=== PATIENT | female | born 1945 | race Caucasian/White ===

== ENCOUNTER → 2016-10-08 | Outpatient (CLI) | payer MEDICARE | END | disposition home or self-care (01) | LOC: CFH 08:20 | PROVIDERS: ATTEND Family Medicine | DX: Z12.31 Encounter for screening mammogram for malignant neoplasm of breast (principal); Z13.820 Encounter for screening for osteoporosis; M85.80 Other specified disorders of bone density and structure, unspecified site; Z80.3 Family history of malignant neoplasm of breast | CPT/HCPCS: 77080; G0202 ==

== ENCOUNTER 2016-10-28 17:46 | Inpatient (IN) | payer MEDICARE ==
[~2016-10-28] VITALS: Ht 152.4 cm; Wt 66.5 kg
[2016-10-28] MEDS ORDERED: SODIUM CHLORIDE 0.9% 1,000 ML IV ONE ×2 (18:19→22:06)
[2016-10-28] MEDS ORDERED: ONDANSETRON ODT 4 MG ONE (18:20)
[2016-10-28] MEDS ORDERED: ONDANSETRON ODT 4 MG PO ONE (18:30)
[2016-10-28] MEDS ORDERED: SODIUM CHLORIDE FLUSH 10ML SYR IVF ONE (18:30)
[2016-10-28 18:54] LABS: ASPARTATE AMINO TRANSFERASE 22 U/L (15-37); BLOOD UREA NITROGEN 13 mg/dL (7-18)
[2016-10-28] MEDS ORDERED: SIMV10TA3 PO (20:19)
[2016-10-28] MEDS ORDERED: IRBE75TA10 PO (20:19)
[2016-10-28] MEDS ORDERED: HYDR12.53 PO (20:19)
[2016-10-28] MEDS ORDERED: SULF1TAB24 PO (20:19)
[2016-10-28] MEDS ORDERED: ONDANSETRON 2MG/ML, 2ML ONE (22:12)
[2016-10-28] MEDS ORDERED: ONDANSETRON 2MG/ML, 2ML IVPush PRN (22:30)
[2016-10-28] MEDS ORDERED: PROMETHAZINE 25 MG/ML, 1ML IM PRN (22:30)
[2016-10-28 23:05] VITALS: BP 165/69
[2016-10-29 01:05] VITALS: BP 167/78
[2016-10-29] MEDS ORDERED: METOCLOPRAMIDE 5 MG/ML, 2ML IVPush PRN (02:30)
[2016-10-29] MEDS ORDERED: ACETAMINOPHEN 325 MG TABLET PO PRN (02:30)
[2016-10-29] MEDS ORDERED: CEFTRIAXONE PMX 1GM/50ML 50 ML IV SCH (02:30)
[2016-10-29] MEDS ORDERED: METRONIDAZOLE PMX 500MG/100ML 100 ML IV SCH (02:30)
[2016-10-29] MEDS ORDERED: ENALAPRILAT 1.25 MG/ML, 2ML IVPush PRN (02:30)
[2016-10-29] MEDS ORDERED: ONDANSETRON 2MG/ML, 2ML IVPush PRN (02:30)
[2016-10-29] MEDS ORDERED: PROMETHAZINE 25 MG/ML, 1ML IM PRN (02:30)
[2016-10-29] MEDS ORDERED: LABETALOL 5MG/ML, 20ML IVPush PRN (02:30)
[2016-10-29] MEDS ORDERED: DEXTROSE 4 GM TAB.CHEW PO PRN (03:00)
[2016-10-29] MEDS ORDERED: GLUCAGON 1 MG IM PRN (03:00)
[2016-10-29] MEDS ORDERED: DEXTROSE 50%, 50ML SYRINGE IVPush PRN (03:00)
[2016-10-29] MEDS: SODIUM CHLORIDE 0.9% 1,000 ML IV SCH ×2 (03:12→20:38)
[2016-10-29 03:19] LABS: BLOOD UREA NITROGEN 10 mg/dL (7-18)
[2016-10-29] MEDS: INSULIN ASPART 100 UNITS/ML, PEN SQ-INSULIN SCH ×4 (07:00→20:42)
[2016-10-29 07:18] VITALS: BP 153/65
[2016-10-29 07:19] LABS: POTASSIUM,URINE RANDOM 4 mmol/L
[2016-10-29] MEDS: SODIUM CHLORIDE FLUSH 10ML SYR IVF SCH ×2 (09:00→20:37)
[2016-10-29] MEDS: LACTOBACILLUS CHEW TABLET PO SCH ×3 (09:10→20:37)
[2016-10-29] MEDS: IRBESARTAN 150 MG TABLET PO SCH (09:10)
[2016-10-29] MEDS: ENOXAPARIN 40 MG/0.4 ML SQ SCH (09:11)
[2016-10-29 14:28] VITALS: BP 135/68
[2016-10-29 19:55] VITALS: BP 134/76
[2016-10-29] MEDS ORDERED: SIMVASTATIN 10 MG TABLET PO SCH (21:00)
[2016-10-30 01:54] VITALS: BP 133/83
[2016-10-30 04:39] LABS: BLOOD UREA NITROGEN 14 mg/dL (7-18)
[2016-10-30] MEDS: INSULIN ASPART 100 UNITS/ML, PEN SQ-INSULIN SCH ×2 (07:00→11:00)
[2016-10-30 08:30] VITALS: BP 155/75
[2016-10-30] MEDS: IRBESARTAN 150 MG TABLET PO SCH (09:00)
[2016-10-30] MEDS: ENOXAPARIN 40 MG/0.4 ML SQ SCH (09:00)
[2016-10-30] MEDS: SODIUM CHLORIDE FLUSH 10ML SYR IVF SCH (09:00)
[2016-10-30] MEDS: LACTOBACILLUS CHEW TABLET PO SCH (09:00)
[2016-10-30] MEDS: SODIUM CHLORIDE 0.9% 1,000 ML IV SCH (10:30)
== END 2016-10-30 13:40 | disposition home or self-care (01) | DRG 394 ==
LOC: ED 21:37 → EDIP 22:59 → 3NW 23:00 → DCLOUNGE 10-30 13:21
PROVIDERS: ADMIT Internal Medicine
DX: K52.1 Toxic gastroenteritis and colitis (principal); E87.1 Hypo-osmolality and hyponatremia; N39.0 Urinary tract infection, site not specified; E11.9 Type 2 diabetes mellitus without complications; E78.5 Hyperlipidemia, unspecified; E86.0 Dehydration; I10 Essential (primary) hypertension; I16.0 Hypertensive urgency; Z98.51 Tubal ligation status; Z79.899 Other long term (current) drug therapy; Z88.5 Allergy status to narcotic agent; Z88.8 Allergy status to other drugs, medicaments and biological substances; Z83.3 Family history of diabetes mellitus; A08.4 Viral intestinal infection, unspecified; T37.0X5A Adverse effect of sulfonamides, initial encounter
CPT/HCPCS: 36415; 71010; 80048; 80053; 81003; 82436; 82962; 83036; 83690; 83735; 83880; 83930; 83935; 84100; 84133; 84295; 84300; 85025; 93005; 96361; 96374; J0696; J1650; J2405; Q0162; J7030